=== PATIENT | male | born 1950 | race Caucasian/White ===

== ENCOUNTER 2016-08-20 05:11 | Emergency (ER) | payer MEDICARE ==
[2016-08-20 05:26] VITALS: O2SAT 96
[2016-08-20] MEDS ORDERED: Sodium Chloride 0.9% 1000 ML 1,000 ML IV SCH (05:30)
[2016-08-20 05:46] LABS: BASOPHIL % 0.2 % (0.0-0.4); Eosinophil % 0.8 % (0.00-5.0); Lymphocytes % 15.8 % (24.0-44.0); Mean Cell Volume 89.8 fl (78-100); Mean Corpuscular Hemoglobin 30.8 pg (26-32); Monocytes % 6.2 % (0.0-12.0); Platelet Count 372 K/mm3 (150-450); Red Blood Count 5.19 M/mm3 (4.1-5.6); Red Cell Distribution Width 13.4 % (11.5-14.0); White Blood Count 10.9 K/mm3 (4.0-10.5)
--- NOTE | 2016-08-20 05:48 | ERPHSYRPT ---
- History of Present Illness Time Seen by Provider: 08/20/16 05:13 Source: patient Exam Limitations: no limitations Patient Subjective Stated Complaint: "i stood up getting out of bed and BOOM it popped out. (refering to hernia in rlq). i had a repair there when i was younger - 8 years old. i had a ct on from dr ha. i had to drink the contrast and they gave it to me in the iv. i have not been right since. i had that trying to get a dx. i have had weak arms and legs and lost about 20 pounds in the last 3 months. Triage Nursing Assessment: aox3, breathign easy unlabored, skin pink warm dry, steady gait, hernia noted to RLQ and LLQ Physician History: ABOUT 2 HOURS AGO PT GOT UP OUT OF BED AND A HERNIA POPPED OUT OVER THE RIGHT INGUINAL AREA WITHOUT PAIN BUT WITH TENDERNESS ON PALPATION. PT HAD A RIGHT INGUINAL HERNIA REPAIR WHEN HE WAS 8 YEARS OF AGE AND HAS NOT HAD ANY PROBLEMS UNTIL TONIGHT. PT HAS HAD A LEFT INGUINAL HERNIA FOR THE PAST 15 YEARS. LAST BM WAS YESTERDAY & WNL. PT HAD A CT CHEST/ABDOMEN/PELVIS WITH CONTRAST ON 08/15/16 AT [facility] ORDERED BY DR HA([employer]/ ONCOLOGIST) BECAUSE OF WEAK EXTREMITIES AND A 20# WEIGHT LOSS IN THE PAST 3 MONTHS BUT DOES NOT KNOW THE RESULTS. PT DENIES CHEST PAIN, SHORTNESS OF AIR, VOMITING. Allergies/Adverse Reactions: No Known Drug Allergies Allergy (Unverified 08/20/16 05:30) Home Medications: Aspirin EC 325 mg [Ecotrin 325 MG] 164.5 mg PO DAILY 08/20/16 [History] Hx Tetanus, Diphtheria Vaccination/Date Given: No Hx Influenza Vaccination/Date Given: No Hx Pneumococcal Vaccination/Date Given: No - Review of Systems Constitutional: Weakness, Weight Loss Respiratory: No Dyspnea Cardiac: No Chest Pain Abdominal/Gastrointestinal: Other (LEFT INGUINAL HERNIA FOR 15 YEARS; RIGHT INGUINAL HERNIA THIS AM.), No Vomiting Skin: No Rash All Other Systems: Reviewed and Negative - Past Medical History Pertinent Past Medical History: No - Past Surgical History Past Surgical History: Yes Other Surgical History: hernia; left thumb - Social History Smoking Status: Current every day smoker How long have you smoked: 30 Exposure to second hand smoke: Yes Drug Use: none Patient Lives Alone: Yes - Nursing Vital Signs Nursing Vital Signs: Initial Vital Signs Temperature 97.2 F Temperature Source Oral Pulse Rate 97 Respiratory Rate 12 Blood Pressure [Right Arm] 112/75 Pain Intensity 2 - Physical Exam General Appearance: alert Eye Exam: PERRL/EOMI Ears, Nose, Throat Exam: pharynx normal, moist mucous membranes Neck Exam: normal inspection Respiratory Exam: lungs clear Cardiovascular Exam: normal heart sounds Gastrointestinal/Abdomen Exam: soft, normal bowel sounds, hernia (BILATERAL INGUINAL HERNIAS RIGHT > LEFT. RIGHT INGUINAL HERNIA IS HARD AND IRREDUSIBLE.) Back Exam: normal range of motion Extremity Exam: normal inspection, No pedal edema Neurologic Exam: alert, cooperative Skin Exam: warm, dry SpO2 Interpretation: normal SpO2: 96 Oxygen Delivery: Room Air - Course Nursing assessment & vital signs reviewed: Yes Ordered Tests: Active Orders 24 hr Category Date Time Status IV Insertion STAT Care 08/20/16 05:24 Active AMYLASE Stat Lab 08/20/16 05:42 Completed CBC W DIFF Stat Lab 08/20/16 05:24 Completed CMP Stat Lab 08/20/16 05:42 Completed LIPASE Stat Lab 08/20/16 05:42 Completed UA W/ MICROSCOPIC Stat Lab 08/20/16 06:00 Completed Medication Summary Generic Name Dose Route Start Last Admin Trade Name Freq PRN Reason Stop Dose Admin Sodium Chloride 1,000 mls @ 100 mls/hr 08/20/16 05:30 08/20/16 06:02 Sodium Chloride 0.9% 1000 Ml IV 09/19/16 05:29 100 mls/hr .Q10H ERASMO Administration Discontinued Medications Generic Name Dose Route Start Last Admin Trade Name Freq PRN Reason Stop Dose Admin Sodium Chloride Confirm 08/20/16 05:49 Sodium Chloride 0.9% 1000 Ml Administered 08/20/16 05:50 Dose 1,000 mls @ ud .ROUTE .STK-MED ONE Lab/Rad Data: Laboratory Result Diagrams 08/20/16 05:24 08/20/16 05:42 Laboratory Results 08/20/16 08/20/16 08/20/16 Range/Units 06:00 05:42 05:24 WBC 10.9 H (4.0-10.5) K/mm3 RBC 5.19 (4.1-5.6) M/mm3 Hgb 16.0 (12.5-18.0) gm/dl Hct 46.6 (42-50) % MCV 89.8 (78-100) fl MCH 30.8 (26-32) pg MCHC 34.3 (32-36) g/dl RDW 13.4 (11.5-14.0) % Plt Count 372 (150-450) K/mm3 MPV 10.0 H (6-9.5) fl Gran % 77.0 H (36.0-66.0) % Lymphocytes % 15.8 L (24.0-44.0) % Monocytes % 6.2 (0.0-12.0) % Eosinophils % 0.8 (0.00-5.0) % Basophils % 0.2 (0.0-0.4) % Basophils # 0.02 (0-0.4) Sodium 137 (136-145) mEq/L Potassium 4.1 (3.5-5.1) mEq/L Chloride 99 (98-107) mEq/L Carbon Dioxide 24.4 (21-32) mEq/L Anion Gap 18.1 H (5-15) MEQ/L BUN 12 (9-20) mg/dL Creatinine 1.04 (0.55-1.30) mg/dl Estimated GFR > 60 ML/MIN Glucose 141 H (70-110) MG/DL Calcium 9.9 (8.5-10.1) mg/dL Total Bilirubin 1.0 (0.2-1.0) mg/dL AST 17 (15-37) U/L ALT 16 (12-78) U/L Alkaline Phosphatase 136 H (46-116) U/L Serum Total Protein 8.9 H (6.4-8.2) gm/dL Albumin 3.9 (3.4-5.0) g/dL Amylase 37 (25-115) U/L Lipase 72 L (73-393) U/L Ur Collection Type VOID Urine Color DARK YELLOW (YELLOW) Urine Appearance HAZY (CLEAR) Urine pH 5.5 (5-6) Ur Specific [place] >=1.030 (1.005-1.025) Urine Protein 30 (Negative) Urine Glucose (UA) NEGATIVE (NEGATIVE) mg/dL Urine Ketones SMALL-15 (NEGATIVE) Urine Nitrite NEGATIVE (NEGATIVE) Urine Bilirubin MODERATE (NEGATIVE) Urine Urobilinogen 0.2 (0-1) mg/dL Urine WBC (Auto) NEGATIVE (NEGATIVE) Urine RBC (Auto) NEGATIVE (0-5) Cipriano/ul Urine Microscopic RBC 0-2 (0-2) /HPF Urine Microscopic WBC 2-5 (0-5) /HPF Ur Epithelial Cells FEW (FEW) /HPF Urine Bacteria FEW (NEGATIVE) /HPF Urine Mucus MANY (NEGATIVE) /HPF Specimen Received 08/20/16 0600 - Progress Progress Note: 08/20/16 05:53 CT - CHEST/ABDOMEN/PELVIS REPORT OF 08/15/16 OBTAINED: RIGHT UPPER LUNG MASS WITH MEDIASTINAL AND RIGHT HILAR ADENOPATHY. FINDINGS ARE CONCERNING FOR MALIGNANCY UNTIL PROVEN OTHERWISE. 08/20/16 05:59 PT AND PT'S REQUEST TRANSFER TO [facility]. Discussed with : Other (SPOKE WITH DR VENTURA(SURGEON)([id number]) WHO ACCEPTED PT FOR TRANSFER TO [facility] A DIRECT ADMISSION.) - Departure Time of Disposition: 06:34 Departure Disposition: Transfer ([facility]) Clinical Impression: IRREDUCIBLE RIGHT INGUINAL HERNIA, RIGHT LUNG MASS Condition: Fair Critical Care Time: No Referrals: JAYDEN MAZA [Primary Care Provider] -
[2016-08-20] MEDS ORDERED: Sodium Chloride 0.9% 1000 ML 1,000 ML ONE (05:49)
[2016-08-20 06:02] LABS: ALBUMIN 3.9 g/dL (3.4-5.0); ALKALINE PHOSPHATASE 136 U/L (46-116); ANION GAP 18.1 MEQ/L (5-15); BLOOD UREA NITROGEN 12 mg/dL (9-20); CHLORIDE 99 mEq/L (98-107); Carbon Dioxide 24.4 mEq/L (21-32); Glucose 141 MG/DL (70-110); LIPASE 72 U/L (73-393); Potassium 4.1 mEq/L (3.5-5.1); SGOT/AST 17 U/L (15-37); SGPT/ALT 16 U/L (12-78); SODIUM 137 mEq/L (136-145); Total Protein 8.9 gm/dL (6.4-8.2)
[2016-08-20 06:25] VITALS: BP 112/75; PULSE 97
[2016-08-20 06:26] LABS: COMPLETE URINE MICROSCOPIC? YES; Collection Type VOID; Ph 5.5 (5-6)
[2016-08-20 06:28] LABS: Bacteria FEW /HPF (NEGATIVE); Epithelial Cells FEW /HPF (FEW); Mucus MANY /HPF (NEGATIVE)
== END 2016-08-20 08:00 | disposition short-term general hospital (02) ==
LOC: ED 05:11
DX: K40.30 Unilateral inguinal hernia, with obstruction, without gangrene, not specified as recurrent (principal); R91.8 Other nonspecific abnormal finding of lung field; R53.1 Weakness; R63.4 Abnormal weight loss
CPT/HCPCS: 36000; 36415; 80053; 81000; 82150; 83690; 85025; 96360; 96361; 99284; 99285

== ENCOUNTER 2018-08-27 13:06 | Emergency (ER) | payer MEDICARE ==
--- NOTE | 2018-08-27 13:29 | ERPHSYRPT ---
- History of Present Illness Time Seen by Provider: 08/27/18 13:24 Source: patient Exam Limitations: no limitations Patient Subjective Stated Complaint: pt here for alterd mental status, he was just admitted to group home last night for a s/p head bleed about 3 weeks ago that required surgery. pt is nonverbal today but is able to nod yes and no to questions,he also has hx of lung cancer Triage Nursing Assessment: pt alert, resp easy, skin w/d/p, pt has feeding to [facility]. no edema noted,.has sutures to left side of head. Physician History: 68-year-old white male with history of lung cancer with metastases no recent head bleed, which apparently had midline shift noted to have left arm flaccidity mental status change Patient's states patient has had left arm plasticity since having CVA blood mental status change since being at group home yesterday afternoon. Patient arrives he is able to the squeeze with his right hand he has minimal use of his left hand he is a phasic. 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 which apparently had involved his brain Patient with the intercranial bleed with midline shift and a recent drainage Past surgical history includes hernia removed bowel resection tumor removed left side of the scalp which involved the brain, evacuation of intracranial bleed Social history positive tobacco use Timing/Duration: yesterday, other (patient noted to left arm flaccidity and mental status change since yesterday afternoon) Modifying Factors: Improves With: other Associated Symptoms: other (patient with left arm weakness worse since yesterday mental status change since yesterday), No nausea, No vomiting, No abdominal pain, No shortness of breath, No heartburn, No diaphoresis, No cough, No chills, No chest pain, No fever, No loss of appetite, No malaise, No rash, No syncope, No seizure Allergies/Adverse Reactions: No Known Drug Allergies Allergy (Verified 08/27/18 13:21) Home Medications: Aspirin EC 325 mg [Ecotrin 325 MG] 164.5 mg PO DAILY 08/20/16 [History] Budesonide 0.5 mg/2 ml [Pulmicort 0.5 mg/2 ml Respules] 1 puff BID [History] Ipratropium/Albuterol Sulfate [Iprat-Albut 0.5-3(2.5) mg/3 ml] 3 ml QID [History] Levetiracetam [Keppra] 100 mg DAILY 08/27/18 [History] Hx Tetanus, Diphtheria Vaccination/Date Given: No Hx Influenza Vaccination/Date Given: No Hx Pneumococcal Vaccination/Date Given: No Immunizations Up to Date: Yes - Review of Systems Constitutional: No Fever, No Chills Eyes: No Symptoms Ears, Nose, & Throat: No Symptoms Respiratory: No Cough, No Dyspnea Cardiac: No Chest Pain, No Edema, No Syncope Abdominal/Gastrointestinal: No Abdominal Pain, No Nausea, No Vomiting, No Diarrhea Genitourinary Symptoms: No Dysuria Musculoskeletal: Other (left arm weakness) Skin: No Rash Psychological: Other (patient with recent headbleed, left arm weakness worse since yesterday mental status change since yesterday) Endocrine: No Symptoms All Other Systems: Reviewed and Negative - Past Medical History Pertinent Past Medical History: No Neurological History: Other Cardiac History: No Pertinent History Respiratory History: Lung Cancer Endocrine Medical History: No Pertinent History Musculoskeletal History: No Pertinent History Other Medical History: hernia surgery July 2016, subdural hematoma - Past Surgical History Past Surgical History: Yes Neuro Surgical History: Neurological Surgery Other Surgical History: hernia; left thumb - Social History Smoking Status: Current every day smoker How long have you smoked: 30 Exposure to second hand smoke: Yes Drug Use: none Patient Lives Alone: No ([place]) - Nursing Vital Signs Nursing Vital Signs: Initial Vital Signs Temperature 98.0 F 08/27/18 13:11 Pulse Rate 100 H 08/27/18 13:11 Respiratory Rate 16 08/27/18 13:11 Blood Pressure 95/66 08/27/18 13:11 O2 Sat by Pulse Oximetry 95 08/27/18 13:11 Pain Scale Pain Intensity 0 - Physical Exam General Appearance: other (Well-developed white male alert, aphasic unable to last inserter with left arm does not move left arm to command cranial nerves II through xII intact) Ears, Nose, Throat Exam: normal ENT inspection, TMs normal, pharynx normal, moist mucous membranes Neck Exam: normal inspection, non-tender, supple, full range of motion Respiratory Exam: normal breath sounds, lungs clear, No respiratory distress Cardiovascular Exam: regular rate/rhythm, normal heart sounds, normal peripheral pulses, capillary refill <2 sec Gastrointestinal/Abdomen Exam: soft, normal bowel sounds, No tenderness, No mass Back Exam: normal inspection, normal range of motion, No CVA tenderness, No vertebral tenderness Extremity Exam: normal inspection, normal range of motion, pelvis stable Neurologic Exam: alert, cooperative, head of mobile II-XII nml as tested, other (a phasic, unable to last inserter with left hand or move left arm) Skin Exam: other (sutures in place left scalp) Lymphatic Exam: No adenopathy SpO2 Interpretation: normal (95%) SpO2: 95 - Course Nursing assessment & vital signs reviewed: Yes EKG Interpreted by Me: RATE (97 bpm), Sinus Rhythm, Other (EKG: Sinus rhythm, 97 bpm, axisSI/QIII pattern, no acute ST or T wave changes noted) - Radiology Exams Chest X-ray Interpretation: Discussed w/ radiologist (chest x-ray: Diffuse right infiltrate/atelectasis/effusion. Remaining heart, left lung unremarkable bony thorax intact with mild osteopenia and degenerative changes. Partially visualized PEG tube and a upper abdomen.) - CT Exams Head CT Interpretation: Discussed w/radiologist (CT head: impression 1. Subacute to chronic appearing right frontal parietal subdural hemorrhage question tiny right parietal acute appearing subdural. 4-5 mm midline shifting. 2. Left parietal bony bur holes with small pneumocephalus. 3. Left occipital craniectomy with underlying encephalomalacia. Comparison studies would be of benefit. ) Ordered Tests: Active Orders 24 hr Category Date Time Status Accucheck STAT Care 08/27/18 13:13 Active EKG-ER Only STAT Care 08/27/18 13:12 Active Cartagena [Catheter-Ambrose Cartagena] STAT Care 08/27/18 14:32 Active IV Insertion STAT Care 08/27/18 13:12 Active CHEST 1 VIEW (PORTABLE) Stat Exams 08/27/18 13:13 Completed HEAD WITHOUT CONTRAST [CT] Stat Exams 08/27/18 13:13 Completed AMYLASE Stat Lab 08/27/18 14:00 Completed BLOOD CULTURE Stat Lab 08/27/18 14:55 Received CBC W DIFF Stat Lab 08/27/18 14:00 Completed CMP Stat Lab 08/27/18 14:00 Completed LIPASE Stat Lab 08/27/18 14:00 Completed NT PRO BNP Stat Lab 08/27/18 13:25 Completed PROTIME WITH INR Stat Lab 08/27/18 14:00 Completed PTT Stat Lab 08/27/18 14:00 Completed TROPONIN Q3H Lab 08/27/18 14:00 Completed UA W/RFX UR CULTURE Stat Lab 08/27/18 14:22 Completed Medication Summary Discontinued Medications Generic Name Dose Route Start Last Admin Trade Name Freq PRN Reason Stop Dose Admin Ceftriaxone Sodium/Dextrose 1 g in 50 mls @ 100 mls/hr 08/27/18 14:50 15:07 Rocephin 1 Gm-D5w 50 Ml Bag IV 08/27/18 15:19 100 mls/hr STAT STA 100 mls/hr Administration Ceftriaxone Sodium/Dextrose Confirm 08/27/18 14:59 Rocephin 1 Gm-D5w 50 Ml Bag Administered 08/27/18 15:00 Dose 1 g in 50 mls @ ud IV .STK-MED ONE Lab/Rad Data: Laboratory Result Diagrams 08/27/18 14:00 08/27/18 14:00 Laboratory Results 08/27/18 08/27/18 08/27/18 Range/Units 16:20 14:22 14:00 WBC (4.0-10.5) K/mm3 RBC (4.1-5.6) M/mm3 Hgb (12.5-18.0) gm/dl Hct (42-50) % MCV (78-100) fl MCH (26-32) pg MCHC (32-36) g/dl RDW (11.5-14.0) % Plt Count (150-450) K/mm3 MPV (6-9.5) fl Gran % (36.0-66.0) % Eos # (Auto) (0-0.5) Absolute Lymphs (auto) (1.0-4.6) Absolute Monos (auto) (0.0-1.3) Lymphocytes % (24.0-44.0) % Monocytes % (0.0-12.0) % Eosinophils % (0.00-5.0) % Basophils % (0.0-0.4) % Absolute Granulocytes (1.4-6.9) Basophils # (0-0.4) PT (8.83-12.87) SECONDS INR (0.8-3.0) APTT (24.1-36.1) SECONDS Sodium (137-145) mmol/L Potassium (3.5-5.1) mmol/L Chloride (98-107) mmol/L Carbon Dioxide (22-30) mmol/L Anion Gap (5-15) MEQ/L BUN (9-20) mg/dL Creatinine (0.66-1.25) mg/dL Estimated GFR ML/MIN Glucose (74-106) mg/dL Calcium (8.4-10.2) mg/dL Total Bilirubin (0.2-1.3) mg/dL AST (17-59) U/L ALT (0-50) U/L Alkaline Phosphatase (38-126) U/L Troponin 0.01 (0.00-0.03) ng/mL Troponin I < 0.012 (0.000-0.034) ng/mL NT-Pro-B Natriuret Pep (0-900) pg/mL Serum Total Protein (6.3-8.2) g/dL Albumin (3.5-5.0) g/dL Amylase (30-110) U/L Lipase (23-300) U/L Urine Color STRAW (YELLOW) Urine Appearance CLEAR (CLEAR) Urine pH 8.0 (5-6) Ur Specific [place] 1.010 (1.005-1.025) Urine Protein NEGATIVE (Negative) Urine Ketones NEGATIVE (NEGATIVE) Urine Blood NEGATIVE (0-5) Cipriano/ul Urine Nitrite NEGATIVE (NEGATIVE) Urine Bilirubin NEGATIVE (NEGATIVE) Urine Urobilinogen NEGATIVE (0-1) mg/dL Ur Leukocyte Esterase NEGATIVE (NEGATIVE) Urine WBC (Auto) 3-5 (0-5) /HPF Urine RBC (Auto) 3-5 (0-2) /HPF U Hyaline Cast (Auto) 3-5 (0-2) /LPF U Epithel Cells (Auto) NONE (FEW) /HPF Urine Bacteria (Auto) NONE (NEGATIVE) /HPF Urine Mucus (Auto) SLIGHT (NEGATIVE) /HPF Urine Culture Reflexed NO (NO) Urine Glucose NEGATIVE (NEGATIVE) mg/dL Slides for Path Review 08/27/18 08/27/18 08/27/18 Range/Units 14:00 14:00 14:00 WBC 6.4 (4.0-10.5) K/mm3 RBC 3.79 L (4.1-5.6) M/mm3 Hgb 11.1 L (12.5-18.0) gm/dl Hct 36.3 L (42-50) % MCV 95.8 (78-100) fl MCH 29.2 (26-32) pg MCHC 30.6 L (32-36) g/dl RDW 15.4 H (11.5-14.0) % Plt Count 237 (150-450) K/mm3 MPV 9.7 H (6-9.5) fl Gran % 84.0 H (36.0-66.0) % Eos # (Auto) 0.06 (0-0.5) Absolute Lymphs (auto) 0.54 L (1.0-4.6) Absolute Monos (auto) 0.40 (0.0-1.3) Lymphocytes % 8.5 L (24.0-44.0) % Monocytes % 6.3 (0.0-12.0) % Eosinophils % 0.9 (0.00-5.0) % Basophils % 0.3 (0.0-0.4) % Absolute Granulocytes 5.33 (1.4-6.9) Basophils # 0.02 (0-0.4) PT 14.2 H (8.83-12.87) SECONDS INR 1.22 (0.8-3.0) APTT 29.7 (24.1-36.1) SECONDS Sodium 136 L (137-145) mmol/L Potassium 4.4 (3.5-5.1) mmol/L Chloride 97 L (98-107) mmol/L Carbon Dioxide 28 (22-30) mmol/L Anion Gap 14.9 (5-15) MEQ/L BUN 24 H (9-20) mg/dL Creatinine 0.39 L (0.66-1.25) mg/dL Estimated GFR > 60.0 ML/MIN Glucose 104 (74-106) mg/dL Calcium 9.0 (8.4-10.2) mg/dL Total Bilirubin 0.70 (0.2-1.3) mg/dL AST 27 (17-59) U/L ALT 25 (0-50) U/L Alkaline Phosphatase 68 (38-126) U/L Troponin (0.00-0.03) ng/mL Troponin I (0.000-0.034) ng/mL NT-Pro-B Natriuret Pep (0-900) pg/mL Serum Total Protein 7.1 (6.3-8.2) g/dL Albumin 3.7 (3.5-5.0) g/dL Amylase 68 (30-110) U/L Lipase 59 (23-300) U/L Urine Color (YELLOW) Urine Appearance (CLEAR) Urine pH (5-6) Ur Specific [place] (1.005-1.025) Urine Protein (Negative) Urine Ketones (NEGATIVE) Urine Blood (0-5) Cipriano/ul Urine Nitrite (NEGATIVE) Urine Bilirubin (NEGATIVE) Urine Urobilinogen (0-1) mg/dL Ur Leukocyte Esterase (NEGATIVE) Urine WBC (Auto) (0-5) /HPF Urine RBC (Auto) (0-2) /HPF U Hyaline Cast (Auto) (0-2) /LPF U Epithel Cells (Auto) (FEW) /HPF Urine Bacteria (Auto) (NEGATIVE) /HPF Urine Mucus (Auto) (NEGATIVE) /HPF Urine Culture Reflexed (NO) Urine Glucose (NEGATIVE) mg/dL Slides for Path Review YES 08/27/18 Range/Units 13:25 WBC (4.0-10.5) K/mm3 RBC (4.1-5.6) M/mm3 Hgb (12.5-18.0) gm/dl Hct (42-50) % MCV (78-100) fl MCH (26-32) pg MCHC (32-36) g/dl RDW (11.5-14.0) % Plt Count (150-450) K/mm3 MPV (6-9.5) fl Gran % (36.0-66.0) % Eos # (Auto) (0-0.5) Absolute Lymphs (auto) (1.0-4.6) Absolute Monos (auto) (0.0-1.3) Lymphocytes % (24.0-44.0) % Monocytes % (0.0-12.0) % Eosinophils % (0.00-5.0) % Basophils % (0.0-0.4) % Absolute Granulocytes (1.4-6.9) Basophils # (0-0.4) PT (8.83-12.87) SECONDS INR (0.8-3.0) APTT (24.1-36.1) SECONDS Sodium (137-145) mmol/L Potassium (3.5-5.1) mmol/L Chloride (98-107) mmol/L Carbon Dioxide (22-30) mmol/L Anion Gap (5-15) MEQ/L BUN (9-20) mg/dL Creatinine (0.66-1.25) mg/dL Estimated GFR ML/MIN Glucose (74-106) mg/dL Calcium (8.4-10.2) mg/dL Total Bilirubin (0.2-1.3) mg/dL AST (17-59) U/L ALT (0-50) U/L Alkaline Phosphatase (38-126) U/L Troponin (0.00-0.03) ng/mL Troponin I (0.000-0.034) ng/mL NT-Pro-B Natriuret Pep 306 (0-900) pg/mL Serum Total Protein (6.3-8.2) g/dL Albumin (3.5-5.0) g/dL Amylase (30-110) U/L Lipase (23-300) U/L Urine Color (YELLOW) Urine Appearance (CLEAR) Urine pH (5-6) Ur Specific [place] (1.005-1.025) Urine Protein (Negative) Urine Ketones (NEGATIVE) Urine Blood (0-5) Cipriano/ul Urine Nitrite (NEGATIVE) Urine Bilirubin (NEGATIVE) Urine Urobilinogen (0-1) mg/dL Ur Leukocyte Esterase (NEGATIVE) Urine WBC (Auto) (0-5) /HPF Urine RBC (Auto) (0-2) /HPF U Hyaline Cast (Auto) (0-2) /LPF U Epithel Cells (Auto) (FEW) /HPF Urine Bacteria (Auto) (NEGATIVE) /HPF Urine Mucus (Auto) (NEGATIVE) /HPF Urine Culture Reflexed (NO) Urine Glucose (NEGATIVE) mg/dL Slides for Path Review - Progress Progress: improved Progress Note: 08/27/18 15:06 68-year-old white male with history of recent intracranial bleed with drainage also history of lung cancer arrives from group home with complaint of increasing left arm flaccidity since yesterday and mental status change patient arrives and is a phasic on arrival. She apparently has had left-sided weakness of his arm of this apparently is worse he is unable to last inserter on the left and unable to move the left arm. Patient is noted to have a head CT With impression 1 subacute to chronic appearing right frontal parietal subdural hemorrhage question a tiny right parietal acute appearing subdural. 4-5 mm midline shifting 2. Left parietal bony bur holes with small pneumocephalus 3. Left occipital craniectomy with underlying encephalomalacia Patient's chest x-ray remarkable for diffuse right lung infiltrate/atelectasis/ effusion, Remaining heart and left lung unremarkable Bony thorax intact with mild osteopenia and degenerative changes. Partially visualized PEG tube in the upper abdomen Patient with an EKG remarkable for sinus rhythm 97 bpm axisSI/Qiii pattern no acute ST or T wave changes are noted Patient was stable CBC INR is 1.2 to Chemistry sodium 136 potassium 4.4 chloride 97 bicarbonate 28 BUN 24 creatinine 0.39 glucose 104 Patient has been cultured and patient has received 1 g of Rocephin IV. I've contacted Dr. Moss at [facility] one call he has accepted the patient for transfer. Patient will be transferred to [facility] ICU Impression 1 intercranial bleed. 2 right sided pneumonia. 3 left arm weakness. 4 mental status change. - Departure Time of Disposition: 17:15 Departure Disposition: Transfer ([facility]) Clinical Impression: Intracranial bleed, Left arm weakness Pneumonia Qualifiers: Pneumonia type: due to unspecified organism Laterality: right Lung location: unspecified part of lung Qualified Code(s): J18.9 - Pneumonia, unspecified organism Change in mental status Qualifiers: Altered mental status type: unspecified Qualified Code(s): R41.82 - Altered mental status, unspecified Condition: Fair Critical Care Time: No Referrals: JAYDEN MAZA [Primary Care Provider] -
--- NOTE | 2018-08-27 13:59 | XRAY ---
Indication: Altered mental status. Comparison: None Portable chest demonstrates diffuse right lung infiltrate/atelectasis/effusion. Remaining heart and left lung unremarkable. Bony thorax intact with mild osteopenia and degenerative changes. Partially visualized PEG tube in the upper abdomen.
--- NOTE | 2018-08-27 14:00 | XRAY ---
Indication: Altered mental status. Brain surgery August 15, 2018. Multiple contiguous axial images obtained through the head without contrast. Comparison: None There are at least 3 left parietal bony brook holes with small pneumocephalus. Subacute to chronic appearing right frontal parietal subdural hemorrhage at least 1 cm in thickness and 11 cm in AP dimension. Query tiny curvilinear right mid parietal acute appearing subdural hemorrhage. Approximately 4-5 mm midline shifting to the left. Elsewhere left occipital craniectomy with underlying encephalomalacia. Fourth ventricle is midline without hydrocephalus. Right sphenoid sinus denser is mild mucosal thickening. Near complete opacification of the right mastoid air cells. Remaining visualized paranasal sinuses and left mastoid air cells are clear. Impression: 1. Subacute to chronic appearing right frontal parietal subdural hemorrhage. I question a tiny right parietal acute appearing subdural. 4-5 mm midline shifting. 2. Left parietal bony brook holes with small pneumocephalus. 3. Left occipital craniectomy with underlying encephalomalacia. Comment: Comparison studies would be of benefit. CT DI 70.77
[2018-08-27 14:14] LABS: INR 1.22 (0.8-3.0); PROTIME 14.2 SECONDS (8.83-12.87)
[2018-08-27 14:17] LABS: PTT 29.7 SECONDS (24.1-36.1)
[2018-08-27 14:19] LABS: ALBUMIN 3.7 g/dL (3.5-5.0); ALKALINE PHOSPHATASE 68 U/L (38-126); AMYLASE 68 U/L (30-110); ANION GAP 14.9 MEQ/L (5-15); BLOOD UREA NITROGEN 24 mg/dL (9-20); CHLORIDE 97 mmol/L (98-107); Carbon Dioxide 28 mmol/L (22-30); Creatinine 1 0.39 mg/dL (0.66-1.25); Glucose 104 mg/dL (74-106); LIPASE 59 U/L (23-300); Potassium 4.4 mmol/L (3.5-5.1); SGOT/AST 27 U/L (17-59); SGPT/ALT 25 U/L (0-50); SODIUM 136 mmol/L (137-145); Total Protein 7.1 g/dL (6.3-8.2)
[2018-08-27 14:23] LABS: BASOPHIL % 0.3 % (0.0-0.4); Basophil (Absolute #) 0.02 (0-0.4); Eosinophil % 0.9 % (0.00-5.0); Eosinophil (Absolute #) 0.06 (0-0.5); Granulocyte Absolute (ANC) 5.33 (1.4-6.9); Hematocrit 36.3 % (42-50); Hemoglobin 11.1 gm/dl (12.5-18.0); Lymphocyte (Absolute #) 0.54 (1.0-4.6); Lymphocytes % 8.5 % (24.0-44.0); Mean Cell Volume 95.8 fl (78-100); Mean Corpuscular Hemoglobin 29.2 pg (26-32); Mean Corpuscular Hgb Concent. 30.6 g/dl (32-36); Mean Platelet Volume 9.7 fl (6-9.5); Monocytes % 6.3 % (0.0-12.0); Platelet Count 237 K/mm3 (150-450); Red Blood Count 3.79 M/mm3 (4.1-5.6); Red Cell Distribution Width 15.4 % (11.5-14.0); White Blood Count 6.4 K/mm3 (4.0-10.5)
[2018-08-27 14:44] LABS: Appearance CLEAR (CLEAR); Bilirubin NEGATIVE (NEGATIVE); Blood NEGATIVE Ery/ul (0-5); Glucose NEGATIVE (NEGATIVE); Ketones NEGATIVE (NEGATIVE); Leukocyte Esterase NEGATIVE (NEGATIVE); Mucus SLIGHT /HPF (NEGATIVE); Nitrite NEGATIVE (NEGATIVE); Protein,Urine Dip NEGATIVE (Negative); Urobilinogen NEGATIVE mg/dL (0-1)
[2018-08-27] MEDS ORDERED: ROCEPHIN 1 Gm-D5w 50 ml Bag** 1 G/50 ML IVPB IV STA (14:50)
[2018-08-27] MEDS ORDERED: ROCEPHIN 1 Gm-D5w 50 ml Bag** 1 G/50 ML IVPB IV ONE (14:59)
[2018-08-27 15:05] LABS: Slide Review 1 YES
[2018-08-27 17:27] VITALS: BP 98/55; PULSE 70
[2018-08-27 21:24] VITALS: O2SAT 95
== END 2018-08-27 17:22 | disposition short-term general hospital (02) ==
LOC: ED 13:06
DX: J18.9 Pneumonia, unspecified organism (principal); R41.82 Altered mental status, unspecified; I62.9 Nontraumatic intracranial hemorrhage, unspecified
CPT/HCPCS: 36000; 36415; 51702; 70450; 71045; 80053; 81001; 82150; 82962; 83690; 83880; 84484; 85025; 85610; 85730; 87040; 93005; 96365; 99285; J0696